=== PATIENT | male | born 1985 | race Two or more races ===

== ENCOUNTER 2021-07-03 17:44 | Emergency (ER) | payer SELFPAY ==
[~2021-07-03] VITALS: Ht 185.4 cm; Wt 85.0 kg
[2021-07-04] MEDS ORDERED: AMOX-424 MT (01:03)
[2021-07-04] MEDS ORDERED: OFLO5DRO4 RIGHT EAR (01:03)
[2021-07-04 01:15] VITALS: BP 127/84
== END 2021-07-04 01:30 | disposition home or self-care (01) ==
LOC: ER 17:44
DX: H60.91 Unspecified otitis externa, right ear (principal)
CPT/HCPCS: 99283; C1893